=== PATIENT | male | born 1960 | race Caucasian/White ===

== ENCOUNTER 2016-03-29 13:02 | Emergency (ER) | payer OTHER ==
[~2016-03-29] VITALS: Ht 177.8 cm; Wt 124.3 kg
[~2016-03-29 13:02] MED LIST: COZAAR100 MG PO; ERGOCALCIF50000 UNIT PO; GLUCOPHAGE1000 MG PO; LANTUS 3 M100 UNITS1 SC; LO-DOSE ASPIRIN81 M2 PO; MAGNESIUM OXID400 MG PO; NORVASC2.5 MG PO; NOVOLIN,HU100 UNITS1 SC; PRAVACHOL40 MG PO; TOPROL XL100 MG PO
[2016-03-29 13:51] LABS: CARBON DIOXIDE (BICARBONATE) 27.3 MEQ/L (20-31)
[2016-03-29 14:11] LABS: CHLORIDE 97 mEq/L (99-109); POTASSIUM 4.8 mEq/L (3.7-5.4); SODIUM 131 mEq/L (136-147)
[2016-03-29 14:15] LABS: ANION GAP 13 MEQ/L (2-14)
[2016-03-29 14:17] LABS: GFR ESTIMATE (CALCULATED) > 59 mL/min/
[2016-03-29 14:18] LABS: UREA NITROGEN (BUN) 21 mg/dL (9-23)
[2016-03-29 14:20] LABS: POINT-OF-CARE METER ID UU13113778
[2016-03-29 14:23] LABS: GLUCOSE 543 mg/dL (70-99)
[2016-03-29 15:05] LABS: HEMATOCRIT 40.1 % (38.0-50.0); MCH 30.5 PG (29.0-34.0); MCHC 36.2 G/DL (30.0-36.0); MCV 84.4 FL (86-99); MEAN PLAT.VOLUME 11.3 uM^3 (9.0-12.4); PLATELET COUNT 200 K/uL (156-360); RBC DIS.WIDTH-CV 12.5 % (11.8-14.6); RBC DIS.WIDTH-SD 38.1 % (39-53); RED BLOOD COUNT 4.75 M/uL (4.00-5.50)
[2016-03-29] MEDS ORDERED: GABAPENTIN600 MG PO (15:16)
[2016-03-29 16:27] LABS: ADD MIUA? YES; BILIRUBIN NEGATIVE; BLOOD SMALL; COLOR YELLOW ((YELLOW)); GLUCOSE (STRIP) >=1000; KETONES TRACE; LEUKOCYTES NEGATIVE; NITRITE NEGATIVE; PH, URINE 5.5 (5-8); PROTEIN (STRIP) >=300; SPECIFIC GRAVITY 1.043 (1.000-1.030); UROBILINOGEN 0.2 MG/DL (0.2-1.0)
[2016-03-29 16:44] LABS: BACTERIA NONE SEEN; CASTS NONE SEEN /LPF; CRYSTALS NONE SEEN; EPITHELIAL CELLS RARE; MUCUS NONE SEEN; PATHOLOGICAL CAST NONE SEEN; RED BLOOD CELLS 0-5 /HPF (0-5); SMALL ROUND CELL NONE SEEN; WHITE BLOOD CELLS 0-5 /HPF (0-5); YEAST-LIKE CELL NONE SEEN
[2016-03-29 19:55] VITALS: BP 168/76
== END 2016-03-29 19:55 | disposition home or self-care (01) ==
LOC: EME 13:02
PROVIDERS: Emergency Medicine; Nurse Practitioner Family
DX: E11.65 Type 2 diabetes mellitus with hyperglycemia (principal); E87.1 Hypo-osmolality and hyponatremia; Z79.4 Long term (current) use of insulin; Z79.82 Long term (current) use of aspirin; Z87.891 Personal history of nicotine dependence; Z88.4 Allergy status to anesthetic agent; Z88.6 Allergy status to analgesic agent
CPT/HCPCS: 71020; 80048; 81003; 82009; 82803; 82948; 85027; 99281; 99284; J7030

== ENCOUNTER 2016-05-02 13:07 | Emergency (ER) | payer OTHER ==
[~2016-05-02] VITALS: Ht 177.8 cm; Wt 125.9 kg
[~2016-05-02 13:07] MED LIST changes: +GABAPENTIN600 MG PO
[2016-05-02 17:25] LABS: HEMATOCRIT 39.2 % (38.0-50.0); MCH 29.8 PG (29.0-34.0); MCHC 35.5 G/DL (30.0-36.0); MCV 84.1 FL (86-99); MEAN PLAT.VOLUME 10.2 uM^3 (9.0-12.4); PLATELET COUNT 191 K/uL (156-360); RBC DIS.WIDTH-CV 12.8 % (11.8-14.6); RBC DIS.WIDTH-SD 38.4 % (39-53); RED BLOOD COUNT 4.66 M/uL (4.00-5.50); WHITE BLOOD COUNT 14.1 K/uL (4.1-10.2)
[2016-05-02 17:33] LABS: CHLORIDE 101 mEq/L (99-109); POTASSIUM 4.1 mEq/L (3.7-5.4); SODIUM 135 mEq/L (136-147)
[2016-05-02 17:35] LABS: GLUCOSE 229 mg/dL (70-99)
[2016-05-02 17:37] LABS: ANION GAP 11 MEQ/L (2-14)
[2016-05-02 17:39] LABS: GFR ESTIMATE (CALCULATED) > 59 mL/min/
[2016-05-02 17:40] LABS: UREA NITROGEN (BUN) 18 mg/dL (9-23)
[2016-05-02] MEDS ORDERED: BACTRIM,SEPT1 TABLET PO (18:55)
[2016-05-02] MEDS ORDERED: PERCOCET 5/31 TABLET PO (18:55)
[2016-05-02 19:01] VITALS: BP 129/66
== END 2016-05-02 19:41 | disposition home or self-care (01) ==
LOC: EME → EDBD 13:07 → EME 19:41
PROVIDERS: Physician Assistant
DX: L03.116 Cellulitis of left lower limb (principal); E11.9 Type 2 diabetes mellitus without complications; Z79.4 Long term (current) use of insulin; Z79.84 Long term (current) use of oral hypoglycemic drugs; Z79.82 Long term (current) use of aspirin
CPT/HCPCS: 71020; 73630; 80048; 83605; 85027; 85610; 85730; 87040; 99281; 99285; J0696; J3010; J7030; J7050

== ENCOUNTER 2016-05-07 14:48 | Inpatient (IN) | payer OTHER ==
[~2016-05-07] VITALS: Ht 177.8 cm; Wt 124.0 kg
[~2016-05-07 14:48] MED LIST changes: +BACTRIM,SEPT1 TABLET PO; +PERCOCET 5/31 TABLET PO
[2016-05-07 15:59] LABS: HEMATOCRIT 33.9 % (38.0-50.0); MCH 29.4 PG (29.0-34.0); MCHC 34.8 G/DL (30.0-36.0); MCV 84.5 FL (86-99); MEAN PLAT.VOLUME 10.2 uM^3 (9.0-12.4); PLATELET COUNT 247 K/uL (156-360); RBC DIS.WIDTH-SD 36.3 % (39-53); RED BLOOD COUNT 4.01 M/uL (4.00-5.50); WHITE BLOOD COUNT 13.2 K/uL (4.1-10.2)
[2016-05-07 16:02] LABS: POINT-OF-CARE METER ID UU14100415
[2016-05-07 16:11] LABS: CHLORIDE 100 mEq/L (99-109)
[2016-05-07 16:12] LABS: POTASSIUM 4.6 mEq/L (3.7-5.4); SODIUM 132 mEq/L (136-147)
[2016-05-07 16:14] LABS: GLUCOSE 261 mg/dL (70-99)
[2016-05-07 16:15] LABS: ANION GAP 8 MEQ/L (2-14)
[2016-05-07 16:16] LABS: TOTAL BILIRUBIN 0.5 mg/dL (0.0-1.0)
[2016-05-07 16:17] LABS: ALKALINE PHOSPHATASE 75 IU/L (3-129); GFR ESTIMATE (CALCULATED) > 59 mL/min/
[2016-05-07 16:19] LABS: UREA NITROGEN (BUN) 23 mg/dL (9-23)
[2016-05-07] MEDS ORDERED: GLUCOPHAGE1000 MG PO (16:50)
[2016-05-07 18:30] LABS: TROP-I INTERPRETATION NEGATIVE; TROPONIN-I 0.04 ng/mL (0.0-0.30)
[2016-05-07 19:49] VITALS: BP 170/81
[2016-05-07 23:44] VITALS: BP 140/66
[2016-05-08 02:08] LABS: TROP-I INTERPRETATION NEGATIVE; TROPONIN-I 0.03 ng/mL (0.0-0.30)
[2016-05-08 04:13] VITALS: BP 125/61
[2016-05-08 07:15] LABS: POINT-OF-CARE METER ID UU14188577
[2016-05-08 08:01] VITALS: BP 174/83
[2016-05-08 08:54] LABS: ANION GAP 6 MEQ/L (2-14); CHLORIDE 100 MEQ/L (99-109); GFR ESTIMATE (CALCULATED) > 59 mL/min/; GLUCOSE 263 mg/dL (70-99); HEMATOCRIT 30.8 % (38.0-50.0); MCH 29.6 PG (29.0-34.0); MCHC 34.1 G/DL (30.0-36.0); MCV 86.8 FL (86-99); MEAN PLAT.VOLUME 10.4 uM^3 (9.0-12.4); PLATELET COUNT 203 K/uL (156-360); POTASSIUM 4.5 MEQ/L (3.7-5.4); RBC DIS.WIDTH-CV 12.2 % (11.8-14.6); RED BLOOD COUNT 3.55 M/uL (4.00-5.50); SAMPLE HEMOLYSIS CHECK 0; SAMPLE ICTERIC CHECK 0; SAMPLE LIPEMIA CHECK 0; SODIUM 133 MEQ/L (136-147); UREA NITROGEN (BUN) 21 mg/dL (9-23)
[2016-05-08 08:55] LABS: WHITE BLOOD COUNT 8.3 K/uL (4.1-10.2)
[2016-05-08 15:37] VITALS: BP 169/81
[2016-05-08 17:10] LABS: POINT-OF-CARE METER ID UU14149397
[2016-05-08 20:41] VITALS: BP 142/68
[2016-05-09 00:04] VITALS: BP 150/62
[2016-05-09 04:34] VITALS: BP 143/68
[2016-05-09 07:40] LABS: Estimated Average Glucose 180 mg/dL (70-123); HEMOGLOBIN A1c (GLYCOHEMOGLOB) 7.9 % HGB (Below 5.7)
[2016-05-09 07:59] VITALS: BP 128/85
[2016-05-09 08:48] LABS: POINT-OF-CARE METER ID UU14149397
[2016-05-09 12:18] LABS: POINT-OF-CARE METER ID UU14188577
[2016-05-09 16:12] VITALS: BP 169/72
[2016-05-09 21:44] LABS: POINT-OF-CARE METER ID UU14188577
[2016-05-10 00:01] VITALS: BP 140/68
[2016-05-10 08:12] VITALS: BP 162/81
[2016-05-10 09:00] LABS: POINT-OF-CARE METER ID UU14149397
[2016-05-10 16:37] LABS: POINT-OF-CARE METER ID UU14149397
[2016-05-10 22:50] LABS: POINT-OF-CARE METER ID UU14188577
[2016-05-11] VITALS (7 sets, daily range): BP systolic 155–1377; BP diastolic 67–80
[2016-05-11 06:21] LABS: POINT-OF-CARE METER ID UU14188577
[2016-05-11 08:26] LABS: POINT-OF-CARE METER ID UU14188577
[2016-05-11 12:15] LABS: POINT-OF-CARE METER ID UU14188577
[2016-05-11 16:53] LABS: POINT-OF-CARE METER ID UU14188577
[2016-05-11 22:21] LABS: POINT-OF-CARE METER ID UU14188577
[2016-05-12 07:13] LABS: POINT-OF-CARE METER ID UU14188577
[2016-05-12 07:13] LABS: POINT-OF-CARE METER ID UU14188577
[2016-05-12 08:10] VITALS: BP 162/82
[2016-05-12 15:58] VITALS: BP 162/74
[2016-05-12 17:21] LABS: POINT-OF-CARE METER ID UU14188577
[2016-05-12 21:02] LABS: POINT-OF-CARE METER ID UU14149397
[2016-05-13 00:34] VITALS: BP 170/80
[2016-05-13 06:30] LABS: EOSINOPHIL (%) 3.7 % (0-5); EOSINOPHIL COUNT 0.4 K/uL (0-0.3); HEMATOCRIT 32.7 % (38.0-50.0); IMMATURE GRANULOCYTE (%) 1.7 % (0.0-0.7); IMMATURE GRANULOCYTE COUNT 0.2 K/uL; LYMPHOCYTE COUNT 1.6 K/uL (1.0-2.8); MCH 30.3 PG (29.0-34.0); MCHC 35.2 G/DL (30.0-36.0); MCV 86.1 FL (86-99); MEAN PLAT.VOLUME 9.7 uM^3 (9.0-12.4); MONOCYTE (%) 5.5 % (3-12); MONOCYTE COUNT 0.6 K/uL (0-0.8); NEUTROPHIL (%) 73.8 % (45-76); PLATELET COUNT 221 K/uL (156-360); RBC DIS.WIDTH-CV 12.3 % (11.8-14.6); RBC DIS.WIDTH-SD 38.4 % (39-53)
[2016-05-13 06:31] LABS: WHITE BLOOD COUNT 10.9 K/uL (4.1-10.2)
[2016-05-13 06:49] LABS: POINT-OF-CARE METER ID UU14188577
[2016-05-13 06:49] LABS: ANION GAP 6 MEQ/L (2-14); CHLORIDE 103 MEQ/L (99-109); GFR ESTIMATE (CALCULATED) > 59 mL/min/; GLUCOSE 102 mg/dL (70-99); POTASSIUM 4.1 MEQ/L (3.7-5.4); SAMPLE HEMOLYSIS CHECK 0; SAMPLE ICTERIC CHECK 0; SAMPLE LIPEMIA CHECK 0; SODIUM 138 MEQ/L (136-147); UREA NITROGEN (BUN) 15 mg/dL (9-23)
[2016-05-13 08:26] LABS: VANCOMYCIN, TROUGH 11.2 MCG/ML (10-20)
[2016-05-13 08:29] VITALS: BP 183/81
[2016-05-13 12:06] LABS: POINT-OF-CARE METER ID UU14149397
[2016-05-13 16:30] VITALS: BP 151/72
[2016-05-13 16:47] LABS: POINT-OF-CARE METER ID UU14149397
[2016-05-14 00:07] VITALS: BP 158/76
[2016-05-14 08:06] VITALS: BP 153/71
[2016-05-14 09:42] LABS: POINT-OF-CARE METER ID UU13113675
[2016-05-14 10:53] LABS: POINT-OF-CARE METER ID UU14149397
[2016-05-14 11:30] VITALS: BP 165/79
[2016-05-14 16:30] VITALS: BP 155/68
[2016-05-14 16:39] LABS: POINT-OF-CARE METER ID UU14149397
[2016-05-14 23:52] VITALS: BP 172/81
[2016-05-15 07:57] LABS: POINT-OF-CARE METER ID UU14188577
[2016-05-15 08:30] VITALS: BP 183/83
[2016-05-15 16:30] VITALS: BP 160/72
[2016-05-16 00:15] VITALS: BP 150/70
[2016-05-16 05:41] LABS: HEMATOCRIT 31.5 % (38.0-50.0); MCH 29.6 PG (29.0-34.0); MCHC 34.6 G/DL (30.0-36.0); MCV 85.6 FL (86-99); MEAN PLAT.VOLUME 9.8 uM^3 (9.0-12.4); PLATELET COUNT 234 K/uL (156-360); RBC DIS.WIDTH-CV 12.2 % (11.8-14.6); RBC DIS.WIDTH-SD 37.9 % (39-53); RED BLOOD COUNT 3.68 M/uL (4.00-5.50); WHITE BLOOD COUNT 10.5 K/uL (4.1-10.2)
[2016-05-16 06:39] LABS: ANION GAP 8 MEQ/L (2-14); CHLORIDE 105 MEQ/L (99-109); GFR ESTIMATE (CALCULATED) > 59 mL/min/; POTASSIUM 3.9 MEQ/L (3.7-5.4); SAMPLE HEMOLYSIS CHECK 0; SAMPLE ICTERIC CHECK 0; SAMPLE LIPEMIA CHECK 0; SODIUM 141 MEQ/L (136-147); UREA NITROGEN (BUN) 14 mg/dL (9-23)
[2016-05-16 06:42] LABS: GLUCOSE 62 mg/dL (70-99)
[2016-05-16 07:20] VITALS: BP 175/78
[2016-05-16 09:38] LABS: POINT-OF-CARE METER ID UU14149397
[2016-05-16 11:56] LABS: POINT-OF-CARE METER ID UU14149397
[2016-05-16 16:15] VITALS: BP 159/75
[2016-05-16 16:26] LABS: POINT-OF-CARE METER ID UU14149397
[2016-05-16 23:42] VITALS: BP 160/71
[2016-05-17 06:39] LABS: GFR ESTIMATE (CALCULATED) > 59 mL/min/
[2016-05-17 07:12] LABS: POINT-OF-CARE METER ID UU14149397
[2016-05-17 07:58] VITALS: BP 162/80
[2016-05-17 12:14] LABS: POINT-OF-CARE METER ID UU14188577
[2016-05-17 16:43] LABS: POINT-OF-CARE METER ID UU14188577
[2016-05-17 22:13] VITALS: BP 160/72
[2016-05-18 06:13] LABS: POINT-OF-CARE METER ID UU13113725
[2016-05-18 06:44] LABS: GFR ESTIMATE (CALCULATED) > 59 mL/min/
[2016-05-18 06:47] LABS: VANCOMYCIN, TROUGH 19.6 MCG/ML (10-20)
[2016-05-18] MEDS ORDERED: DURICEF1 GM PO ×2 (08:42→11:50)
[2016-05-18 10:00] VITALS: BP 164/79
[2016-05-18 11:49] LABS: POINT-OF-CARE METER ID UU13113725
[2016-05-18] MEDS ORDERED: PRAVACHOL40 MG PO (11:50)
== END 2016-05-18 14:12 | disposition home health service (06) | DRG 40 ==
LOC: EME 14:48 → 3EAST 16:55 → EDOF 16:55 → 3EAST 19:02 → 5EAST 05-17 21:47
PROVIDERS: Emergency Medicine; Hospitalist; Internal Medicine; Nurse Practitioner Family
DX: E10.610 Type 1 diabetes mellitus with diabetic neuropathic arthropathy (principal); L89.154 Pressure ulcer of sacral region, stage 4; M86.172 Other acute osteomyelitis, left ankle and foot; E10.42 Type 1 diabetes mellitus with diabetic polyneuropathy; E10.51 Type 1 diabetes mellitus with diabetic peripheral angiopathy without gangrene; E10.621 Type 1 diabetes mellitus with foot ulcer; L03.116 Cellulitis of left lower limb; M00.072 Staphylococcal arthritis, left ankle and foot; E87.1 Hypo-osmolality and hyponatremia; L02.612 Cutaneous abscess of left foot; E10.65 Type 1 diabetes mellitus with hyperglycemia; E66.01 Morbid (severe) obesity due to excess calories; L97.529 Non-pressure chronic ulcer of other part of left foot with unspecified severity; E10.69 Type 1 diabetes mellitus with other specified complication; B95.61 Methicillin susceptible Staphylococcus aureus infection as the cause of diseases classified elsewhere; Z68.41 Body mass index [BMI] 40.0-44.9, adult; Z79.4 Long term (current) use of insulin; Z95.1 Presence of aortocoronary bypass graft; Z91.11 Patient's noncompliance with dietary regimen; I25.2 Old myocardial infarction; I25.10 Atherosclerotic heart disease of native coronary artery without angina pectoris; R11.2 Nausea with vomiting, unspecified; Z79.84 Long term (current) use of oral hypoglycemic drugs; E78.2 Mixed hyperlipidemia; I10 Essential (primary) hypertension; Z87.891 Personal history of nicotine dependence; D64.9 Anemia, unspecified
CPT/HCPCS: 73630; 73720; 76937; 80048; 80053; 80202; 82565; 82948; 83036; 83605; 84484; 85025; 85027; 87040; 87070; 87075; 87077; 87147; 87186; 87205; 87502; 88305; 88311; 93005; 93926; 93971; 99281; 99285; J1650; J1815; J2405; J3010; J3370; J7030; S0028

== ENCOUNTER 2016-07-10 20:19 | Inpatient (IN) | payer OTHER ==
[~2016-07-10] VITALS: Ht 177.8 cm; Wt 120.7 kg
[~2016-07-10 20:19] MED LIST changes: +DURICEF1 GM PO
[2016-07-10 22:24] LABS: HEMATOCRIT 34.1 % (38.0-50.0); MCH 29.5 PG (29.0-34.0); MCHC 35.2 G/DL (30.0-36.0); MCV 83.8 FL (86-99); MEAN PLAT.VOLUME 9.2 uM^3 (9.0-12.4); PLATELET COUNT 230 K/uL (156-360); RBC DIS.WIDTH-CV 12.8 % (11.8-14.6); RBC DIS.WIDTH-SD 38.6 % (39-53); RED BLOOD COUNT 4.07 M/uL (4.00-5.50); WHITE BLOOD COUNT 9.6 K/uL (4.1-10.2)
[2016-07-10 22:33] LABS: CHLORIDE 101 mEq/L (99-109); POTASSIUM 4.5 mEq/L (3.7-5.4); SODIUM 133 mEq/L (136-147)
[2016-07-10 22:35] LABS: GLUCOSE 249 mg/dL (70-99)
[2016-07-10 22:36] LABS: ANION GAP 9 MEQ/L (2-14)
[2016-07-10 22:37] LABS: TOTAL BILIRUBIN 0.5 mg/dL (0.0-1.0)
[2016-07-10 22:38] LABS: ALKALINE PHOSPHATASE 56 IU/L (3-129)
[2016-07-10 22:39] LABS: GFR ESTIMATE (CALCULATED) > 59 mL/min/
[2016-07-10 22:40] LABS: UREA NITROGEN (BUN) 20 mg/dL (9-23)
[2016-07-10 23:12] LABS: C-REACTIVE PROTEIN 161.3 MG/L (0-10)
[2016-07-10 23:26] LABS: ERTH.SED.RATE 75 MM/HR (0-20)
[2016-07-11 03:00] VITALS: BP 166/79
[2016-07-11 06:33] LABS: POINT-OF-CARE METER ID UU14188577
[2016-07-11 08:36] VITALS: BP 158/76
[2016-07-11 09:26] LABS: GFR ESTIMATE (CALCULATED) > 59 mL/min/
[2016-07-11 11:30] VITALS: BP 123/77
[2016-07-11 16:10] VITALS: BP 168/77
[2016-07-11 19:44] VITALS: BP 177/86
[2016-07-11 21:01] LABS: POINT-OF-CARE METER ID UU14188577
[2016-07-12] VITALS (7 sets, daily range): BP systolic 147–189; BP diastolic 68–82
[2016-07-12 04:09] LABS: EOSINOPHIL (%) 4.4 % (0-5); EOSINOPHIL COUNT 0.3 K/uL (0-0.3); HEMATOCRIT 29.7 % (38.0-50.0); IMMATURE GRANULOCYTE (%) 0.8 % (0.0-0.7); IMMATURE GRANULOCYTE COUNT 0.1 K/uL; INSTRUMENT ABS NEUTROPHIL CT 4.9 K/uL; LYMPHOCYTE COUNT 0.8 K/uL (1.0-2.8); MCH 29.1 PG (29.0-34.0); MCHC 34.7 G/DL (30.0-36.0); MCV 83.9 FL (86-99); MEAN PLAT.VOLUME 9.2 uM^3 (9.0-12.4); MONOCYTE (%) 7.8 % (3-12); MONOCYTE COUNT 0.5 K/uL (0-0.8); NEUTROPHIL (%) 74.2 % (45-76); NEUTROPHIL COUNT 4.9 K/uL (1.8-6.4); PLATELET COUNT 222 K/uL (156-360); RBC DIS.WIDTH-CV 12.7 % (11.8-14.6); RBC DIS.WIDTH-SD 38.9 % (39-53); RED BLOOD COUNT 3.54 M/uL (4.00-5.50)
[2016-07-12 04:10] LABS: WHITE BLOOD COUNT 6.6 K/uL (4.1-10.2)
[2016-07-12 04:17] LABS: CHLORIDE 107 mEq/L (99-109); POTASSIUM 4.1 mEq/L (3.7-5.4); SODIUM 138 mEq/L (136-147)
[2016-07-12 04:20] LABS: ANION GAP 8 MEQ/L (2-14)
[2016-07-12 04:23] LABS: GFR ESTIMATE (CALCULATED) > 59 mL/min/
[2016-07-12 04:24] LABS: UREA NITROGEN (BUN) 16 mg/dL (9-23)
[2016-07-12 04:26] LABS: GFR ESTIMATE (CALCULATED) > 59 mL/min/
[2016-07-12 04:30] LABS: GLUCOSE 87 mg/dL (70-99)
[2016-07-12 07:18] LABS: POINT-OF-CARE METER ID UU14149397
[2016-07-12 08:32] LABS: POINT-OF-CARE METER ID UU13113675
[2016-07-12 11:16] LABS: POINT-OF-CARE METER ID UU14149397
[2016-07-12 16:42] LABS: POINT-OF-CARE METER ID UU14149397
[2016-07-13 03:57] VITALS: BP 144/65
[2016-07-13 05:27] LABS: GFR ESTIMATE (CALCULATED) > 59 mL/min/
[2016-07-13 08:12] VITALS: BP 163/75
[2016-07-13 09:54] LABS: CHLORIDE 105 mEq/L (99-109); POTASSIUM 4.4 mEq/L (3.7-5.4); SODIUM 140 mEq/L (136-147)
[2016-07-13 09:55] LABS: GLUCOSE 98 mg/dL (70-99)
[2016-07-13 09:57] LABS: ANION GAP 9 MEQ/L (2-14)
[2016-07-13 10:00] LABS: UREA NITROGEN (BUN) 14 mg/dL (9-23)
[2016-07-13 11:58] VITALS: BP 158/77
[2016-07-13 12:00] LABS: POINT-OF-CARE METER ID UU14149397
[2016-07-13 15:42] VITALS: BP 170/81
[2016-07-13 16:54] LABS: POINT-OF-CARE METER ID UU14149397
[2016-07-13 22:53] LABS: HEMATOCRIT 29.5 % (38.0-50.0); MCH 28.7 PG (29.0-34.0); MCHC 33.2 G/DL (30.0-36.0); MCV 86.5 FL (86-99); MEAN PLAT.VOLUME 10.1 uM^3 (9.0-12.4); PLATELET COUNT 235 K/uL (156-360); RBC DIS.WIDTH-SD 40.8 % (39-53); RED BLOOD COUNT 3.41 M/uL (4.00-5.50); WHITE BLOOD COUNT 6.3 K/uL (4.1-10.2)
[2016-07-13 23:27] VITALS: BP 170/78
[2016-07-14 08:02] VITALS: BP 142/88
[2016-07-14 08:40] LABS: HEMATOCRIT 31.1 % (38.0-50.0); MCH 29.3 PG (29.0-34.0); MCHC 34.7 G/DL (30.0-36.0); MCV 84.3 FL (86-99); MEAN PLAT.VOLUME 9.4 uM^3 (9.0-12.4); PLATELET COUNT 251 K/uL (156-360); RBC DIS.WIDTH-CV 12.6 % (11.8-14.6); RBC DIS.WIDTH-SD 37.9 % (39-53); RED BLOOD COUNT 3.69 M/uL (4.00-5.50); WHITE BLOOD COUNT 7.3 K/uL (4.1-10.2)
[2016-07-14 09:07] LABS: ANION GAP 8 MEQ/L (2-14); CHLORIDE 101 MEQ/L (99-109); GFR ESTIMATE (CALCULATED) > 59 mL/min/; GLUCOSE 95 mg/dL (70-99); POTASSIUM 4.1 MEQ/L (3.7-5.4); SAMPLE HEMOLYSIS CHECK 0; SAMPLE ICTERIC CHECK 0; SAMPLE LIPEMIA CHECK 0; SODIUM 140 MEQ/L (136-147); UREA NITROGEN (BUN) 11 mg/dL (9-23)
[2016-07-14 11:19] VITALS: BP 132/76
[2016-07-14 17:20] VITALS: BP 140/72
[2016-07-14 21:55] LABS: POINT-OF-CARE METER ID UU14188577
[2016-07-14 23:35] VITALS: BP 136/70
[2016-07-15 07:54] VITALS: BP 132/62
[2016-07-15 09:47] LABS: HEMATOCRIT 30.7 % (38.0-50.0); MCH 28.7 PG (29.0-34.0); MCHC 34.2 G/DL (30.0-36.0); MCV 83.9 FL (86-99); MEAN PLAT.VOLUME 9.6 uM^3 (9.0-12.4); PLATELET COUNT 237 K/uL (156-360); RBC DIS.WIDTH-CV 12.6 % (11.8-14.6); RBC DIS.WIDTH-SD 38.1 % (39-53); RED BLOOD COUNT 3.66 M/uL (4.00-5.50); WHITE BLOOD COUNT 6.3 K/uL (4.1-10.2)
[2016-07-15 09:52] LABS: ANION GAP 7 MEQ/L (2-14); CHLORIDE 101 MEQ/L (99-109); GFR ESTIMATE (CALCULATED) > 59 mL/min/; GLUCOSE 134 mg/dL (70-99); POTASSIUM 4.2 MEQ/L (3.7-5.4); SAMPLE HEMOLYSIS CHECK 0; SAMPLE ICTERIC CHECK 0; SAMPLE LIPEMIA CHECK 0; SODIUM 139 MEQ/L (136-147); UREA NITROGEN (BUN) 12 mg/dL (9-23)
[2016-07-15 11:29] VITALS: BP 136/88
[2016-07-15 17:07] VITALS: BP 179/74
[2016-07-16 00:35] VITALS: BP 156/77
[2016-07-16 08:21] VITALS: BP 1619/81
[2016-07-16 09:27] LABS: HEMATOCRIT 30.7 % (38.0-50.0); MCH 28.7 PG (29.0-34.0); MCHC 34.2 G/DL (30.0-36.0); MCV 83.9 FL (86-99); MEAN PLAT.VOLUME 9.4 uM^3 (9.0-12.4); PLATELET COUNT 238 K/uL (156-360); RBC DIS.WIDTH-CV 12.5 % (11.8-14.6); RED BLOOD COUNT 3.66 M/uL (4.00-5.50)
[2016-07-16 09:57] LABS: ANION GAP 7 MEQ/L (2-14); CHLORIDE 100 MEQ/L (99-109); GFR ESTIMATE (CALCULATED) > 59 mL/min/; POTASSIUM 4.3 MEQ/L (3.7-5.4); SAMPLE HEMOLYSIS CHECK 0; SAMPLE ICTERIC CHECK 0; SAMPLE LIPEMIA CHECK 0; SODIUM 137 MEQ/L (136-147); UREA NITROGEN (BUN) 15 mg/dL (9-23)
[2016-07-16 10:19] LABS: GLUCOSE 228 mg/dL (70-99)
[2016-07-16 15:56] VITALS: BP 174/79
[2016-07-16 21:09] VITALS: BP 158/72
[2016-07-16 21:23] LABS: POINT-OF-CARE METER ID UU14149397
[2016-07-16 23:39] VITALS: BP 165/74
[2016-07-17 00:19] VITALS: BP 152/68
[2016-07-17 08:18] LABS: HEMATOCRIT 35.3 % (38.0-50.0); MCH 28.3 PG (29.0-34.0); MCHC 33.7 G/DL (30.0-36.0); MEAN PLAT.VOLUME 9.4 uM^3 (9.0-12.4); PLATELET COUNT 289 K/uL (156-360); RBC DIS.WIDTH-CV 12.6 % (11.8-14.6); RBC DIS.WIDTH-SD 37.7 % (39-53); WHITE BLOOD COUNT 6.7 K/uL (4.1-10.2)
[2016-07-17 08:24] VITALS: BP 169/74
[2016-07-17 08:42] LABS: ANION GAP 6 MEQ/L (2-14); CHLORIDE 101 MEQ/L (99-109); GFR ESTIMATE (CALCULATED) > 59 mL/min/; GLUCOSE 78 mg/dL (70-99); POTASSIUM 3.9 MEQ/L (3.7-5.4); SAMPLE HEMOLYSIS CHECK 0; SAMPLE ICTERIC CHECK 0; SAMPLE LIPEMIA CHECK 0; SODIUM 141 MEQ/L (136-147); UREA NITROGEN (BUN) 17 mg/dL (9-23)
[2016-07-17 11:48] LABS: POINT-OF-CARE METER ID UU14188577
[2016-07-17 16:20] VITALS: BP 160/73
[2016-07-17 17:01] LABS: POINT-OF-CARE METER ID UU14188577
[2016-07-18 00:20] VITALS: BP 173/79
[2016-07-18 06:23] LABS: POINT-OF-CARE METER ID UU14149397
[2016-07-18 07:59] VITALS: BP 171/82
[2016-07-18 16:52] LABS: POINT-OF-CARE METER ID UU14149397
[2016-07-18 16:58] VITALS: BP 172/88
[2016-07-18 20:35] VITALS: BP 146/76
[2016-07-18 23:38] VITALS: BP 164/83
[2016-07-19 08:08] LABS: POINT-OF-CARE METER ID UU14149397
[2016-07-19 08:26] VITALS: BP 176/74
[2016-07-19 12:01] LABS: POINT-OF-CARE METER ID UU14149397
[2016-07-19 12:34] VITALS: BP 159/77
[2016-07-19 16:08] VITALS: BP 154/72
[2016-07-19 17:04] LABS: POINT-OF-CARE METER ID UU14188577
[2016-07-19 21:47] LABS: POINT-OF-CARE METER ID UU14149397
[2016-07-19 23:59] VITALS: BP 171/84
[2016-07-20 06:07] LABS: POINT-OF-CARE METER ID UU14188577
[2016-07-20 08:09] VITALS: BP 146/81
[2016-07-20] MEDS ORDERED: TRAMADOL HCL50 MG PO (09:10)
[2016-07-20] MEDS ORDERED: AMLODIPINE BESY10 MG PO (09:10)
[2016-07-20 11:43] LABS: POINT-OF-CARE METER ID UU14149397
== END 2016-07-20 13:47 | disposition home health service (06) | DRG 501 ==
LOC: EME 20:19 → 3EAST 07-11 01:13 → EDOF 07-11 01:13 → 3EAST 07-11 02:42
PROVIDERS: Hospitalist; Internal Medicine; Physician Assistant; Student in an Organized Health Care Education/Training Program
PROC: 0HQNXZZ Repair Left Foot Skin, External Approach (ICD-10-PCS; principal; 2016-07-11)
PROC: 0JDR3ZZ Extraction of Left Foot Subcutaneous Tissue and Fascia, Percutaneous Approach (ICD-10-PCS; 2016-07-12)
PROC: 0LBW0ZZ Excision of Left Foot Tendon, Open Approach (ICD-10-PCS; 2016-07-12)
PROC: 0JDR3ZZ Extraction of Left Foot Subcutaneous Tissue and Fascia, Percutaneous Approach (ICD-10-PCS; 2016-07-14)
PROC: 0HQNXZZ Repair Left Foot Skin, External Approach (ICD-10-PCS; 2016-07-15)
DX: M86.172 Other acute osteomyelitis, left ankle and foot (principal); L03.116 Cellulitis of left lower limb; I25.10 Atherosclerotic heart disease of native coronary artery without angina pectoris; E11.65 Type 2 diabetes mellitus with hyperglycemia; E11.40 Type 2 diabetes mellitus with diabetic neuropathy, unspecified; E11.69 Type 2 diabetes mellitus with other specified complication; B95.62 Methicillin resistant Staphylococcus aureus infection as the cause of diseases classified elsewhere; I10 Essential (primary) hypertension; E78.5 Hyperlipidemia, unspecified; G89.4 Chronic pain syndrome; Z95.1 Presence of aortocoronary bypass graft; Z48.1 Encounter for planned postprocedural wound closure; Z89.422 Acquired absence of other left toe(s); E11.621 Type 2 diabetes mellitus with foot ulcer; L97.529 Non-pressure chronic ulcer of other part of left foot with unspecified severity; I25.2 Old myocardial infarction; E66.9 Obesity, unspecified; Z68.38 Body mass index [BMI] 38.0-38.9, adult
CPT/HCPCS: 73630; 73720; 76937; 80048; 80053; 80202; 82565; 82948; 83605; 85025; 85027; 85651; 86140; 87040; 87070; 87075; 87076; 87077; 87147; 87186; 87205; 87801; 93880; 93971; 99281; 99285; J0690; J1644; J1815; J2405; J2543; J3010; J3370; J7030; J7050

== ENCOUNTER 2016-11-22 21:20 | Emergency (ER) | payer OTHER ==
[~2016-11-22] VITALS: Ht 177.8 cm; Wt 116.7 kg
[~2016-11-22 21:20] MED LIST changes: +AMLODIPINE BESY10 MG PO; +TRAMADOL HCL50 MG PO
[2016-11-22] MEDS ORDERED: KEFLEX500 MG PO (21:54)
[2016-11-22 22:15] VITALS: BP 173/90
== END 2016-11-22 22:17 | disposition home or self-care (01) ==
LOC: EME 21:20 → RME 21:20
DX: T22.211A Burn of second degree of right forearm, initial encounter (principal); X12.XXXA Contact with other hot fluids, initial encounter; Y93.89 Activity, other specified; Y92.230 Patient room in hospital as the place of occurrence of the external cause; E11.9 Type 2 diabetes mellitus without complications; Z79.4 Long term (current) use of insulin; Z79.84 Long term (current) use of oral hypoglycemic drugs; Z79.82 Long term (current) use of aspirin; Z95.1 Presence of aortocoronary bypass graft
CPT/HCPCS: 99281; 99285

== ENCOUNTER 2017-08-27 11:58 | Emergency (ER) | payer OTHER ==
[~2017-08-27] VITALS: Ht 177.8 cm; Wt 117.5 kg
[~2017-08-27 11:58] MED LIST changes: +KEFLEX500 MG PO
[2017-08-27] MEDS ORDERED: PEN-VEE K,VEET500 MG PO (14:27)
[2017-08-27 14:50] VITALS: BP 168/80
[2017-08-28] MEDS ORDERED: COSOPT EYE DROP10 ML RIGHT EYE (08:35)
[2017-08-28] MEDS ORDERED: TYLENOL REGULA325 MG PO (08:35)
[2017-08-28] MEDS ORDERED: ATORVASTATIN CA80 MG PO (08:35)
[2017-08-28] MEDS ORDERED: NATURAL BALANCE15 M1 LEFT EYE (08:36)
[2017-08-28] MEDS ORDERED: AMLODIPINE BESY10 MG PO (08:38)
== END 2017-08-27 14:51 | disposition home or self-care (01) ==
LOC: EME 11:58
DX: S30.0XXA Contusion of lower back and pelvis, initial encounter (principal); W06.XXXA Fall from bed, initial encounter; Y92.003 Bedroom of unspecified non-institutional (private) residence as the place of occurrence of the external cause; K08.89 Other specified disorders of teeth and supporting structures; M43.16 Spondylolisthesis, lumbar region; I10 Essential (primary) hypertension; E11.9 Type 2 diabetes mellitus without complications; Z79.4 Long term (current) use of insulin; Z95.1 Presence of aortocoronary bypass graft; Z79.82 Long term (current) use of aspirin
CPT/HCPCS: 72070; 72100; 99281; 99282

== ENCOUNTER 2017-08-28 02:00 | Inpatient (IN) | payer OTHER ==
[~2017-08-28] VITALS: Ht 177.8 cm; Wt 118.5 kg
[~2017-08-28 02:00] MED LIST changes: +PEN-VEE K,VEET500 MG PO
[2017-08-28 02:41] LABS: APPEARANCE CLEAR ((CLEAR)); BILIRUBIN NEGATIVE; BLOOD MODERATE; COLOR YELLOW ((YELLOW)); GLUCOSE (STRIP) >=500; KETONES NEGATIVE; LEUKOCYTES NEGATIVE; NITRITE NEGATIVE; PROTEIN (STRIP) >=500; SPECIFIC GRAVITY 1.024 (1.000-1.030); UROBILINOGEN 0.2 MG/DL (0.2-1.0)
[2017-08-28 02:43] LABS: BACTERIA NONE SEEN /HPF; EPITHELIAL CELLS RARE /HPF; MUCUS NONE SEEN /LPF; UCUL ADDED? NO; WHITE BLOOD CELLS 0-5 /HPF (0-5)
[2017-08-28 03:19] LABS: HEMATOCRIT 36.3 % (38.0-50.0); HEMOGLOBIN 12.9 G/DL (12.5-16.6); MCH 30.6 PG (29.0-34.0); MCHC 35.5 G/DL (30.0-36.0); RBC DIS.WIDTH-CV 13.2 % (11.8-14.6); RBC DIS.WIDTH-SD 40.9 % (39-53); RED BLOOD COUNT 4.22 M/uL (4.00-5.50)
[2017-08-28 03:21] LABS: PLATELET COUNT 103 K/uL (156-360)
[2017-08-28 03:30] LABS: ALBUMIN 3.4 g/dL (3.2-4.8)
[2017-08-28 03:32] LABS: CHLORIDE 100 mEq/L (99-109); POTASSIUM 4.5 mEq/L (3.7-5.4); SODIUM 136 mEq/L (136-147)
[2017-08-28 03:33] LABS: TOTAL PROTEIN 5.8 g/dL (6.4-8.3)
[2017-08-28 03:34] LABS: TOTAL BILIRUBIN 0.6 mg/dL (0.0-1.0)
[2017-08-28 03:35] LABS: ALKALINE PHOSPHATASE 69 IU/L (3-129)
[2017-08-28 03:37] LABS: PHOSPHORUS 1.6 mg/dL (2.5-4.9)
[2017-08-28 03:38] LABS: AST (GOT) 15 IU/L (2-34); CREATININE 1.4 mg/dL (0.6-1.3); DIRECT BILIRUBIN 0.3 mg/dL (0.0-0.3); GFR ESTIMATE (CALCULATED) 56 mL/min/ (58.99-99999)
[2017-08-28 03:39] LABS: ALT (GPT) 17 IU/L (3-49); LIPASE 16 U/L (1.0-51.0); UREA NITROGEN (BUN) 25 mg/dL (9-23)
[2017-08-28 03:40] LABS: TROP-I INTERPRETATION NEGATIVE; TROPONIN-I 0.12 ng/mL (0.0-0.30)
[2017-08-28 03:42] LABS: GLUCOSE 422 mg/dL (70-99)
[2017-08-28] MEDS ORDERED: TYLENOL REGULA325 MG PO (08:35)
[2017-08-28] MEDS ORDERED: ATORVASTATIN CA80 MG PO (08:35)
[2017-08-28] MEDS ORDERED: COSOPT EYE DROP10 ML RIGHT EYE (08:35)
[2017-08-28] MEDS ORDERED: NATURAL BALANCE15 M1 LEFT EYE (08:36)
[2017-08-28] MEDS ORDERED: AMLODIPINE BESY10 MG PO (08:38)
[2017-08-28 08:47] LABS: CHLORIDE 105 MEQ/L (99-109); CREATININE 1.3 MG/DL (0.6-1.3); GFR ESTIMATE (CALCULATED) > 59 mL/min/ (58.99-99999); GLUCOSE 373 mg/dL (70-99); PHOSPHORUS 1.6 mg/dL (2.5-4.9); POTASSIUM 3.7 MEQ/L (3.7-5.4); SODIUM 137 MEQ/L (136-147); UREA NITROGEN (BUN) 25 mg/dL (9-23)
[2017-08-28 10:19] VITALS: BP 170/81
[2017-08-28 13:08] LABS: HEMOGLOBIN A1c (GLYCOHEMOGLOB) 8.2 % (Below 5.7)
[2017-08-28 16:19] VITALS: BP 150/71
[2017-08-28 16:29] LABS: CHLORIDE 106 MEQ/L (99-109); CREATININE 1.2 MG/DL (0.6-1.3); GFR ESTIMATE (CALCULATED) > 59 mL/min/ (58.99-99999); GLUCOSE 333 mg/dL (70-99); POTASSIUM 4.2 MEQ/L (3.7-5.4); SODIUM 138 MEQ/L (136-147); UREA NITROGEN (BUN) 26 mg/dL (9-23)
[2017-08-28 19:26] VITALS: BP 140/73
[2017-08-28 23:17] VITALS: BP 145/70
[2017-08-29 04:10] VITALS: BP 150/70
[2017-08-29 06:58] LABS: HEMATOCRIT 32.3 % (38.0-50.0); MCHC 34.1 G/DL (30.0-36.0); PLATELET COUNT 107 K/uL (156-360); RBC DIS.WIDTH-CV 13.6 % (11.8-14.6); RBC DIS.WIDTH-SD 44.2 % (39-53); RED BLOOD COUNT 3.67 M/uL (4.00-5.50); WHITE BLOOD COUNT 6.4 K/uL (4.1-10.2)
[2017-08-29 07:29] LABS: CHLORIDE 106 MEQ/L (99-109); CREATININE 1.1 MG/DL (0.6-1.3); GFR ESTIMATE (CALCULATED) > 59 mL/min/ (58.99-99999); MAGNESIUM 1.7 mg/dl (1.3-2.7); POTASSIUM 4.2 MEQ/L (3.7-5.4); SODIUM 141 MEQ/L (136-147); UREA NITROGEN (BUN) 22 mg/dL (9-23)
[2017-08-29 07:32] LABS: GLUCOSE 108 mg/dL (70-99); PHOSPHORUS 3.7 mg/dL (2.5-4.9)
[2017-08-29 08:25] VITALS: BP 126/58
[2017-08-29 11:46] VITALS: BP 138/60
[2017-08-29 18:23] VITALS: BP 148/68
[2017-08-29 19:50] VITALS: BP 149/71
[2017-08-29 23:29] VITALS: BP 164/77
[2017-08-30 03:51] VITALS: BP 165/70
[2017-08-30 07:34] VITALS: BP 132/70
[2017-08-30 11:21] VITALS: BP 140/72
[2017-08-30 15:27] VITALS: BP 148/73
[2017-08-30 19:42] VITALS: BP 153/68
[2017-08-30 23:38] VITALS: BP 181/64
[2017-08-31 04:09] VITALS: BP 171/77
[2017-08-31 06:01] LABS: HEMATOCRIT 31.6 % (38.0-50.0); HEMOGLOBIN 11.1 G/DL (12.5-16.6); MCH 30.2 PG (29.0-34.0); MCHC 35.1 G/DL (30.0-36.0); MCV 85.9 FL (86-99); PLATELET COUNT 132 K/uL (156-360); RBC DIS.WIDTH-CV 13.2 % (11.8-14.6); RBC DIS.WIDTH-SD 41.1 % (39-53); RED BLOOD COUNT 3.68 M/uL (4.00-5.50); WHITE BLOOD COUNT 6.8 K/uL (4.1-10.2)
[2017-08-31 06:48] LABS: CHLORIDE 106 MEQ/L (99-109); CREATININE 0.9 MG/DL (0.6-1.3); GFR ESTIMATE (CALCULATED) > 59 mL/min/ (58.99-99999); POTASSIUM 3.9 MEQ/L (3.7-5.4); SODIUM 143 MEQ/L (136-147); UREA NITROGEN (BUN) 14 mg/dL (9-23)
[2017-08-31 06:50] LABS: GLUCOSE 68 mg/dL (70-99)
[2017-08-31 07:27] VITALS: BP 100/60; BP 140/60
[2017-08-31] MEDS ORDERED: AUGMENTIN875 MG PO (09:21)
== END 2017-08-31 11:07 | disposition home or self-care (01) | DRG 872 ==
LOC: EME → EDBD 02:00 → EME 02:00 → 3EAST 07:06 → EDOF 07:06 → ENRESERV 07:15 → CANRESERV 07:15 → ENRESERV 09:01 → 3EAST 10:06
PROVIDERS: Emergency Medicine; Family Medicine; Internal Medicine
DX: A40.8 Other streptococcal sepsis (principal); R65.20 Severe sepsis without septic shock; L03.211 Cellulitis of face; K04.7 Periapical abscess without sinus; N17.9 Acute kidney failure, unspecified; E86.0 Dehydration; E87.2 Acidosis; D69.59 Other secondary thrombocytopenia; E11.65 Type 2 diabetes mellitus with hyperglycemia; E11.649 Type 2 diabetes mellitus with hypoglycemia without coma; I25.10 Atherosclerotic heart disease of native coronary artery without angina pectoris; I10 Essential (primary) hypertension; E78.5 Hyperlipidemia, unspecified; E11.21 Type 2 diabetes mellitus with diabetic nephropathy; E11.42 Type 2 diabetes mellitus with diabetic polyneuropathy; G89.29 Other chronic pain; E66.9 Obesity, unspecified; E83.39 Other disorders of phosphorus metabolism; Z95.1 Presence of aortocoronary bypass graft; Z79.4 Long term (current) use of insulin; Z79.82 Long term (current) use of aspirin; S30.0XXD Contusion of lower back and pelvis, subsequent encounter; Z86.14 Personal history of Methicillin resistant Staphylococcus aureus infection; Z68.36 Body mass index [BMI] 36.0-36.9, adult; Z87.891 Personal history of nicotine dependence; Z89.431 Acquired absence of right foot
CPT/HCPCS: 70486; 71045; 71250; 72070; 72100; 72158; 74177; 80047; 80048; 80048 91; 80076; 81003; 82803; 82948; 83036; 83605; 83690; 83735; 84100; 84484; 85027; 87040; 87801; 93005; 93306; 99281; 99282; 99285; J0696; J1650; J1815; J2540; J2543; J3370; J7030; J7050